=== PATIENT | male | born 1975 | race Hispanic/Latino ===

== ENCOUNTER → 2022-10-31 | Outpatient (CLI) | payer BC ==
[~2022-10-31] MED LIST: AEC81 PO; ATOR40TA69 PO; LISI10TA24 PO; METO-408 PO; TICA90TA PO
[2022-10-31 16:54] LABS: ALBUMIN 4.2 g/dL (3.5-5.0); BILIRUBIN,TOTAL 0.4 mg/dL (0.2-1.0); CREATININE 0.9 mg/dL (0.5-1.5); POTASSIUM 4.6 mmol/L (3.5-5.1); TOTAL PROTEIN, SERUM 6.9 g/dL (6.0-8.3)
== END | disposition home or self-care (01) ==
LOC: LAB 15:22
PROVIDERS: ATTEND Internal Medicine Cardiovascular Disease
DX: E78.5 Hyperlipidemia, unspecified (principal)
CPT/HCPCS: 36415; 80053; 80061

== ENCOUNTER 2023-05-21 10:46 | Emergency (ER) | payer BC ==
[~2023-05-21] VITALS: Ht 165.1 cm; Wt 79.4 kg
[2023-05-21] MEDS ORDERED: METH4TAB3 PO (11:32)
[2023-05-21] MEDS ORDERED: OMEP40CA21 PO (11:32)
[2023-05-21] MEDS ORDERED: IBUP-2077 PO (11:32)
[2023-05-21] MEDS ORDERED: CYCL-309 PO (11:32)
[2023-05-21 11:51] VITALS: BP 117/53; PULSE 66; RESP 16; O2SAT 98
[2023-05-21] MEDS: IBUPROFEN 800 MG TAB PO ONE (11:54)
== END 2023-05-21 13:04 | disposition home or self-care (01) ==
LOC: EDH 10:46
DX: S39.012A Strain of muscle, fascia and tendon of lower back, initial encounter (principal); F17.200 Nicotine dependence, unspecified, uncomplicated; Z79.82 Long term (current) use of aspirin; Z79.899 Other long term (current) drug therapy; Z98.890 Other specified postprocedural states; X50.0XXA Overexertion from strenuous movement or load, initial encounter; Y93.89 Activity, other specified; Y92.89 Other specified places as the place of occurrence of the external cause; Y99.8 Other external cause status
CPT/HCPCS: 72100

== ENCOUNTER 2024-04-09 14:14 | Emergency (ER) | payer BC ==
[~2024-04-09] VITALS: Ht 165.1 cm; Wt 79.4 kg
[~2024-04-09 14:14] MED LIST changes: +CYCL-309 PO; +IBUP-2077 PO; +METH4TAB3 PO; +OMEP40CA21 PO
--- NOTE | 2024-04-09 14:20 | ERN ---
General Chief Complaint: Nausea,Vomiting,Diarrhea Stated Complaint: ABDOMINAL PAIN,VOMITTING Time Seen by MD: 14:16 History of Present Illness Initial Comments 49-year-old male, history of cardiac disease with stent placement, presents for abdominal pain generalized with nausea and vomiting beginning this morning. Around 4:00 a.m. for generalized abdominal pain. It does not prefer a quadrant, has been constant throughout the day. He has vomited 3 times. No fevers sore throat cough congestion. No diarrhea or urinary symptoms. Denies any surgical history in the abdomen. He reports that he has had history of gallstones in the past, but this feels different. Allergies: Coded Allergies: No Known Allergies (Unverified Allergy, Unknown, 08/20/22) Home Meds Active Scripts Dicyclomine HCl (Bentyl) 20 Mg Tab, 20 MG PO Q6HPRN PRN for Abdominal cramps, #20 TAB Prov:ELSA CRAWFORD DIAZO TECHNICIAN 04/09/24 Ondansetron (Ondansetron Odt) 4 Mg Tab.rapdis, 4 MG PO Q6HPRN PRN for nausea, #16 TAB 0 Refills Prov:ELSA CRAWFORD DIAZO TECHNICIAN 04/09/24 Omeprazole (Omeprazole) 40 Mg Capsule.dr, 40 MG PO DAILY, #30 CAP Prov:ELSA CRAWFORD DIAZO TECHNICIAN 05/21/23 Methylprednisolone (Medrol) 4 Mg Tab.ds.pk, 4 MG PO AD, #1 UNIT Prov:ELSA CRAWFORD DIAZO TECHNICIAN 05/21/23 Cyclobenzaprine HCl (Cyclobenzaprine HCl) 10 Mg Tablet, 10 MG PO TID, #30 TAB Prov:ELSA CRAWFORD NP 05/21/23 Ibuprofen (Ibuprofen 800 mg Tab) 800 Mg Tab, 800 MG PO Q8H PRN for fever or pain, #30 TAB 0 Refills Prov:ELSA CRAWFORD NP 05/21/23 Lisinopril (Lisinopril) 10 Mg Tablet, 5 MG PO DAILY for 90 Days, #90 TAB 3 Refills Prov:TINA VIRGEN MD 08/21/22 Atorvastatin Calcium (LIPITOR) 40 Mg Tablet, 40 MG PO HS for 90 Days, #90 TAB 3 Refills Prov:TINA VIRGEN MD 08/21/22 Ticagrelor (Brilinta) 90 Mg Tablet, 90 MG PO BID for 90 Days, #180 TAB 3 Refills Prov:TINA VIRGEN MD 08/21/22 Aspirin (ASPIRIN 81 MG ECTAB) 81 Mg Ectab, 81 MG PO DAILY for 100 Days, #100 TAB.EC 3 Refills Prov:TINA VIRGEN MD 08/21/22 Reported Medications Metoprolol Succinate (Metoprolol Succinate) 25 Mg Tab.er.24h, 25 MG PO DAILY, TAB 09/13/22 Lisinopril (Lisinopril) 10 Mg Tablet, 10 MG PO DAILY, TAB 09/12/22 Past Medical History Past Medical History: Gallstones, Heart Disease, [place] Past Surgical History: Other Surgical History Other: CARDIAC STENTS Family History Family History: CAD Social History Social History: Smokers, Negative ROS Dictation CONSTITUTIONAL: No chills, no fever, no weakness, no diaphoresis, no malaise. HEAD/FACE: No signs of trauma. EENT: No eye pain, no blurred vision, no tearing, no double vision, no ear pain, no ear discharge, no nose pain, no nasal congestion, no throat pain, no throat swelling, no mouth pain. RESPIRATORY: No cough, no orthopnea, no SOB, no stridor, no wheezing. CARDIOVASCULAR: No chest pain, no edema, no palpitations, no syncope. GASTROINTESTINAL/ABDOMINAL: Abdominal pain and vomiting GENITOURINARY: No abnormal discharge, no dysuria, no frequent urination, no hematuria. No complaints of pain in the genitals. MUSCULOSKELETAL: No back pain, no gout, no joint pain, no joint swelling, no muscle pain, no muscle stiffness, no neck pain. INTEGUMENTARY: No change in color, no change in hair/nails, no dryness, no lesion, no lumps, no rash. NEUROLOGICAL/PSYCH: No anxiety, not depressed, no emotional problem, no headache, no numbness, no pre-existing deficit, no history of seizures, no tremors, no weakness. HEMATOLOGIC/LYMPHATIC: Not anemic, no history of blood clots, no apparent bleeding, no bruising, glands not swollen. All Systems Negative, Except as Noted. Physical Exam Physical Exam Dictation VITAL SIGNS: Reviewed. GENERAL APPEARANCE: Alert, oriented x3, no acute distress HEAD AND FACE: Non-traumatic. EYES: PERRL, pink conjunctivas, eyelid no trauma, anterior chamber clear. EARS: Pinnas intact and no signs of trauma or erythema. Ear canals clear and no discharge. TMs no erythema. NOSE: No discharge, no bleeding. OROPHARYNX: Mouth normal, teeth no caries, tongue pink. Pharynx clear, no erythema. Tonsils no exudates, no abscesses noted. Mucous membrane moist. NECK: Supple, non-tender, no thyromegaly, no masses, no JVD, no bruits. BREAST: Deferred. CHEST: No tenderness, no crepitus, no paradoxical movement, no retractions. LUNGS: Clear, well-ventilated, symmetric, no rales, no wheezing, no rhonchi, no stridor, good breath sounds bilaterally. HEART: Regular rate, regular rhythm, no murmur, no gallops. VASCULAR: No peripheral edema. ABDOMEN: Soft, positive bowel sounds, nondistended, no guarding, mild tenderness, no rebound tenderness RECTAL: Deferred. GENITAL: Deferred. NEUROLOGICAL: Normal speech, gross motor function intact, gross sensory function intact. MUSCULOSKELETAL: Neck nontender, full range of motion, back nontender, full range of motion. EXTREMITIES: Nontender, full range of motion. SKIN: Color pink, dry, no turgor, no rash, no lacerations, no abrasions, no contusions. LYMPHATICS: Deferred. Results Laboratory and Microbiology Lab and Micro Result Laboratory Tests Test 04/09/24 15:20 White Blood Count 14.7 K/uL (4.8-10.8) H Red Blood Count 5.48 MIL/uL (4.50-6.20) Hemoglobin 16.7 g/dL (14.0-18.0) Hematocrit 48.7 % (42-54) Mean Corpuscular Volume 88.9 fL (79-99) Mean Corpuscular Hemoglobin 30.5 pg (27.0-33.0) Mean Corpuscular Hemoglobin Concent 34.3 g/dL (32.0-36.0) Red Cell Distribution Width 12.4 % (11.0-15.5) Platelet Count 266 K/uL (130-400) Mean Platelet Volume 10.0 fL (7.5-10.5) Immature Granulocyte % (Auto) 0.4 % (0-1) Neutrophils (%) (Auto) 89.5 % (40.0-77.0) H Lymphocytes (%) (Auto) 7.1 % (21.0-51.0) L Monocytes (%) (Auto) 2.5 % (3.0-13.0) L Eosinophils (%) (Auto) 0.2 % (0.0-8.0) Basophils (%) (Auto) 0.3 % (0.0-5.0) Neutrophils # (Auto) 13.2 K/uL (1.8-7.7) H Lymphocytes # (Auto) 1.0 K/uL (1.0-4.8) Monocytes # (Auto) 0.4 K/uL (0.1-1.0) Eosinophils # (Auto) 0.03 K/uL (0.00-0.70) Basophils # (Auto) 0.04 K/uL (0.00-0.20) Absolute Immature Granulocyte (auto 0.06 K/uL (0-1) Nucleated Red Blood Cells 0.0 % (0.0-0.19) White Cell Morphology Comment See comments Sodium Level 135 mmol/L (136-145) L Potassium Level 4.4 mmol/L (3.5-5.1) Chloride Level 101 mmol/L (101-111) Carbon Dioxide Level 25 mmol/L (21-32) Blood Urea Nitrogen 12 mg/dL (7-18) Creatinine 0.9 mg/dL (0.5-1.3) Glomerular Filtration Rate Calc 105 mL/min (>90) Random Glucose 131 mg/dL (70-105) H Lactic Acid Level 1.8 mmol/L (0.8-2.5) Total Calcium 10.3 mg/dL (8.5-10.1) H Total Bilirubin 0.5 mg/dL (0.2-1.0) Direct Bilirubin 0.2 mg/dL (0.0-0.3) Aspartate Amino Transf (AST/SGOT) 25 U/L (10-37) Alanine Aminotransferase (ALT/SGPT) 42 U/L (12-78) Alkaline Phosphatase 60 U/L (50-136) Troponin I High Sensitivity 31 ng/L (4-75) Total Protein 8.0 g/dL (6.0-8.3) Albumin 4.2 g/dL (3.5-5.0) Lipase 25 U/L (16-77) Labs Reviewed?: Yes EKG/XRAY/US/CT/MRI EKG Comment [facility] Test Date: 2024-04-09 Test Time: 15:36:51 Pat Name: NAI BAKER Department: [facility] Room: Gender: Male Lofter: [id number] : 1975 Requested By: TYLER REYES Order Number: [id number] Reading MD: Measurements Intervals [place] Rate: 63 P: -3 OK: 149 QRS: 53 QRSD: 85 T: 14 QT: 388 QTc: 396 Interpretive Statements HEART SCORE IS THREE Sinus rhythm Please click the below link to view image of tracing. X-RAY Comment CHEST 1VW REASON: epigastric pain COMPARISON: 09/12/2022 FINDINGS: Single view of the chest was obtained. Lungs are clear. Heart size is normal. There is no pulmonary vascular congestion. Mediastinum and bony thorax appear unremarkable. IMPRESSION: 1. Normal single view chest x-ray. Ultrasound Comment BDOMINAL RUQ\E\LTD HISTORY: Adominal Pain COMPARISON: 10/12/2012 FINDINGS: There is normal sonographic appearance of the liver. There are no focal liver masses. The liver is not enlarged.There are multiple small stones in an otherwise normal-appearing gallbladder. There is no wall thickening or edema. Common duct is normal. Right kidney is normal with no evidence of mass, hydronephrosis or stone.The pancreas is obscured by overlying bowel gas. IMPRESSION: 1. 1. Cholelithiasis without evidence of acute cholecystitis. 2. Otherwise unremarkable exam although the pancreas was not visualized. CT Scan Comment Findings: No evidence of nephro or ureterolithiasis is found. No hydronephrosis or ureteral dilatation is seen. The lung bases are clear. The stomach is unremarkable. It shows no wall thickening. No gross ulceration is seen. It is not overly distended. There are no surrounding inflammatory changes. No wall lesions are identified to suggest cancer. The spleen is unremarkable. It is not enlarged. The pancreas shows normal anatomy. It is not fatty replaced. It shows no lesions. The pancreatic duct is not dilated. There is evidence of cholelithiasis. No evidence of acute or chronic inflammation is seen. The adrenal glands are unremarkable. There is no enlargement. No lesions are noted. The liver is unremarkable. It shows no focal masses. The appendix is unremarkable. It shows no evidence of inflammation. No appendicolith is seen. The small bowel is unremarkable. There is no evidence of dilatation to suggest obstruction. No evidence of adynamic ileus is seen. There is no small bowel wall thickening to suggest enteritis. The colon is unremarkable. The urinary bladder is unremarkable. There is no wall thickening to suggest tumor or inflammation. There are no intraluminal calculi. There are no diverticula. There is no evidence of chronic bladder outlet obstruction. There is no evidence of urinary bladder distention to suggest urinary retention. The other pelvic structures are unremarkable. The bony and vascular structures are unremarkable for the patient's age. IMPRESSION: NEGATIVE CT SCAN OF THE ABDOMEN AND PELVIS WITH ORAL AND IV CONTRAST. MDM MDM: Differential diagnosis: Pancreatitis/cholelithiasis/choledoc holithiasis/cholelithiasis/biliary colic/electrolyte imbalance/dehydration/food poisoning Rationale: Tests considered and ordered secondary to shared decision making include: Labs/radiology Previous outside records reviewed: Old ER visits. Risk of complication and/or morbidity or mortality of patient management: None Medications-Per medication reconciliation Need for hospitalization: Patient does not meet criteria for hospitalization. No patient we would wishes to be discharged home on Bentyl and Zofran and a clear liquid diet and we will see his doctor tomorrow Need for emergency major/minor surgery: No There are no social concerns with this patient. Prescription drug management Bentyl/Zofran Prescriptions will include symptomatic care Patient's prior external medical records from other ER visits were reviewed by me as indicated. Prior testing and results from previous visits were reviewed. Prior tests were taken into account with medical decision making and resource utilization, independent historian/historians were used to obtain complete medical history. I independently interpreted the test that were performed, results were reviewed by me and considered findings on radiology if ordered. Medical management and examination interpretation discussions were had by me with other qualified healthcare professionals as indicated for the patient's care. ED Course Orders Procedure Category Date Status Time Cbc With Differential LAB 04/09/24 Complete 14:20 Troponin I High LAB 04/09/24 Complete Sensitivity 14:20 Ct Abdomen/Pelvis CT 04/09/24 Resulted W/Contrast 14:20 Us Abdominal Ruq\Ltd US 04/09/24 Resulted 14:20 12 Lead Ekg Tracing- EKG 04/09/24 Resulted Technical 14:20 Lactated Ringers PHA 04/09/24 Complete 1000ml (Lactated 14:30 Morphine 2mg Syg PHA 04/09/24 Complete (Morphine 2mg Syg) 14:30 Ondansetron 4mg Inj PHA 04/09/24 Complete (Zofran 4mg Inj) 14:30 Chest 1vw RAD 04/09/24 Resulted 14:20 Lipase LAB 04/09/24 Complete 14:20 Basic Metabolic Panel LAB 04/09/24 Complete 14:20 Lactic Acid LAB 04/09/24 Complete 14:20 Hepatic Function Panel LAB 04/09/24 Complete 14:20 Ondansetron 4mg Inj PHA 04/09/24 Complete (Zofran 4mg Inj) 18:47 Morphine 2mg Syg PHA 04/09/24 Complete (Morphine 2mg Syg) 18:47 Iohexol (Omnipaque) PHA 04/09/24 Complete 18:52 Ketorolac PHA 04/09/24 Complete Tromethamine 30mg/Ml 20:00 Dicyclomine Hcl PHA 04/09/24 Complete (Bentyl 20mg Inj) 20:30 Current Medications Medications (Trade) Dose Ordered Sig/Rufino Route PRN Reason Start Time Stop Time Status Last Admin Dose Admin Dicyclomine HCl (Bentyl 20mg Inj) 20 mg ONCE ONCE IM 04/09/24 20:30 04/09/24 20:31 DC 04/09/24 20:29 Iohexol (Omnipaque) 75 ml STK-MED ONCE IV 04/09/24 18:52 04/09/24 18:52 DC Ketorolac Tromethamine (toRADol) 30 mg ONCE ONCE IVP 04/09/24 20:00 04/09/24 20:01 DC 04/09/24 20:14 Lactated Ringer's 1,000 ml @ 0 mls/hr ONCE ONCE IV 04/09/24 14:30 04/09/24 14:31 DC 04/09/24 18:50 Morphine Sulfate (morPHINE 2MG SYG) 2 mg ONCE ONCE IVP 04/09/24 14:30 04/09/24 14:31 DC 04/09/24 18:50 Morphine Sulfate (morPHINE 2MG SYG) 2 mg STK-MED ONCE .ROUTE 04/09/24 18:47 04/09/24 18:48 DC Ondansetron HCl (zoFRAN 4MG INJ) 4 mg ONCE ONCE IVP 04/09/24 14:30 04/09/24 14:31 DC 04/09/24 18:50 Ondansetron HCl (zoFRAN 4MG INJ) 4 mg STK-MED ONCE .ROUTE 04/09/24 18:47 04/09/24 18:47 DC Vital Signs Date Time Temp Pulse Resp B/P (MAP) Pulse Ox O2 Delivery O2 Flow Rate FiO2 04/09/24 21:16 98.1 68 17 159/82 98 Room Air* 0 21 04/09/24 20:30 98.2 83 18 160/82 97 Room Air* 0 21 04/09/24 19:30 98.2 85 18 167/87 98 Room Air* 0 04/09/24 18:30 98.1 85 18 165/80 100 Room Air* 0 04/09/24 14:17 98.1 76 16 160/79 98 Room Air DX & DISP Disposition: Discharge Departure Impression: Primary Impression: Cholelithiasis Additional Impressions: Biliary colic, Food poisoning, Nausea & vomiting, Abdominal cramps Condition: Stable Scripts Dicyclomine HCl (Bentyl) 20 Mg Tab 20 MG PO Q6HPRN PRN for Abdominal cramps, #20 TAB Prov: ELSA CRAWFORD DIAZO TECHNICIAN 04/09/24 Ondansetron (Ondansetron Odt) 4 Mg Tab.rapdis 4 MG PO Q6HPRN PRN for nausea, #16 TAB 0 Refills Prov: ELSA CRAWFORD DIAZO TECHNICIAN 04/09/24 Additional Instructions: Follow-up with primary care provider in 1 to 2 days. Take medications as directed here in the emergency room. Okay to continue home medications unless otherwise discussed during your visit in the emergency room today. Return to your nearest emergency room if symptoms worsen or if there is no improvement. Call 911 if you need immediate assistance. Take Tylenol or Motrin [id number] as needed and if no contraindications are present. Increase oral hydration. A wound culture or urine culture was ordered here in the emergency room department please follow-up with primary care provider and advise them to get repeat ports from our facility. If you had any Yousif wrap/splints that were applied here, please do not remove them until you see your primary care or specialty. Suggest clear liquid diet for the next18 hours, then advance diet slowly to your regular diet. Surgeon for an appointment in the next several days to discuss your bought gallbladder stones Referrals: TINA VIRGEN MD (PCP) MIGUEL BLAND MD Time of Disposition: 20:48 I have reviewed the case, and I agree with, Diagnosis and Plan TYLER REYES DO Apr 09, 2024 14:20 ELSA CRAWFORD NP Apr 09, 2024 19:42
--- NOTE | 2024-04-09 14:58 | HMCIMG ---
CHEST 1VW REASON: epigastric pain COMPARISON: 09/12/2022 FINDINGS: Single view of the chest was obtained. Lungs are clear. Heart size is normal. There is no pulmonary vascular congestion. Mediastinum and bony thorax appear unremarkable. IMPRESSION: 1. Normal single view chest x-ray.
--- NOTE | 2024-04-09 14:59 | HMCIMG ---
US ABDOMINAL RUQ\E\LTD HISTORY: Adominal Pain COMPARISON: 10/12/2012 FINDINGS: There is normal sonographic appearance of the liver. There are no focal liver masses. The liver is not enlarged.There are multiple small stones in an otherwise normal-appearing gallbladder. There is no wall thickening or edema. Common duct is normal. Right kidney is normal with no evidence of mass, hydronephrosis or stone.The pancreas is obscured by overlying bowel gas. IMPRESSION: 1. 1. Cholelithiasis without evidence of acute cholecystitis. 2. Otherwise unremarkable exam although the pancreas was not visualized.
--- NOTE | 2024-04-09 15:39 | EKG ---
[facility] Test Date: 2024-04-09 Test Time: 15:36:51 Pat Name: NAI BAKER Department: [facility] Room: Gender: M Housing Inspector: 08 : 1975 Requested By: TYLER REYES Order Number: [id number] Reading MD: Chang Austin Measurements Intervals [place] Rate: 63 P: -3 [place]: 149 QRS: 53 QRSD: 85 T: 14 QT: 388 QTc: 396 Interpretive Statements Sinus rhythm Compared to ECG 09/12/2022 21:02:47 Myocardial infarct finding no longer present Electronically Signed On 04-09-2024 19:50:30 ER REGISTRAR by Chang Austin Please click the below link to view image of tracing.
[2024-04-09 15:49] LABS: BASOPHILS # (AUTO) 0.04 K/uL (0.00-0.20); BASOPHILS % (AUTO) 0.3 % (0.0-5.0); EOSINOPHILS # (AUTO) 0.03 K/uL (0.00-0.70); EOSINOPHILS % (AUTO) 0.2 % (0.0-8.0); HEMATOCRIT 48.7 % (42-54); IMMATURE GRANULOCYTE ABSOLUTE 0.06 K/uL (0-1); LYMPHOCYTES % (AUTO) 7.1 % (21.0-51.0); MEAN CORPUSCULAR HEMOGLOBIN 30.5 pg (27.0-33.0); MEAN CORPUSCULAR HGB CONC 34.3 g/dL (32.0-36.0); MEAN CORPUSCULAR VOLUME 88.9 fL (79-99); MONOCYTES # (AUTO) 0.4 K/uL (0.1-1.0); MONOCYTES % (AUTO) 2.5 % (3.0-13.0); NEUTROPHILS # (AUTO) 13.2 K/uL (1.8-7.7); NEUTROPHILS % (AUTO) 89.5 % (40.0-77.0); PLATELET COUNT (AUTO) 266 K/uL (130-400); RED BLOOD CELL COUNT(AUTO) 5.48 MIL/uL (4.50-6.20); RED CELL DISTRIBUTION WIDTH 12.4 % (11.0-15.5); WHITE BLOOD COUNT (AUTO) 14.7 K/uL (4.8-10.8)
[2024-04-09 16:36] LABS: CREATININE 0.9 mg/dL (0.5-1.3); POTASSIUM 4.4 mmol/L (3.5-5.1)
[2024-04-09 16:56] LABS: ALBUMIN 4.2 g/dL (3.5-5.0); BILIRUBIN,DIRECT 0.2 mg/dL (0.0-0.3); BILIRUBIN,TOTAL 0.5 mg/dL (0.2-1.0)
--- NOTE | 2024-04-09 18:29 | NUR ---
ASSUMED CARE FOR PT AT THIS TIME
[2024-04-09] MEDS: morPHINE 2 MG SYG IVP ONE (18:50)
[2024-04-09] MEDS: LACTATED RINGERS 1000ML 1,000 ML IV ONE (18:50)
[2024-04-09] MEDS: ondanSETRON 4MG INJ IVP ONE (18:50)
[2024-04-09] MEDS: ondanSETRON 4MG INJ ONE (18:51)
[2024-04-09] MEDS: morPHINE 2 MG SYG ONE (18:51)
[2024-04-09] MEDS ORDERED: IOHEXOL-350 75 ML VIAL IV ONE (18:52)
--- NOTE | 2024-04-09 19:31 | HMCIMG ---
Exam Type: CT ABDOMEN/PELVIS W/CONTRAST Clinical Information: Abdominal Pain Comparison: None Contrast: 100 cc's Isovue 370 IV, no complications or adverse reactions CT Dose Index (CTDI): 31.60 mGy Dose Length Product (DLP): 1740.80 total mGy-cm Findings: No evidence of nephro or ureterolithiasis is found. No hydronephrosis or ureteral dilatation is seen. The lung bases are clear. The stomach is unremarkable. It shows no wall thickening. No gross ulceration is seen. It is not overly distended. There are no surrounding inflammatory changes. No wall lesions are identified to suggest cancer. The spleen is unremarkable. It is not enlarged. The pancreas shows normal anatomy. It is not fatty replaced. It shows no lesions. The pancreatic duct is not dilated. There is evidence of cholelithiasis. No evidence of acute or chronic inflammation is seen. The adrenal glands are unremarkable. There is no enlargement. No lesions are noted. The liver is unremarkable. It shows no focal masses. The appendix is unremarkable. It shows no evidence of inflammation. No appendicolith is seen. The small bowel is unremarkable. There is no evidence of dilatation to suggest obstruction. No evidence of adynamic ileus is seen. There is no small bowel wall thickening to suggest enteritis. The colon is unremarkable. The urinary bladder is unremarkable. There is no wall thickening to suggest tumor or inflammation. There are no intraluminal calculi. There are no diverticula. There is no evidence of chronic bladder outlet obstruction. There is no evidence of urinary bladder distention to suggest urinary retention. The other pelvic structures are unremarkable. The bony and vascular structures are unremarkable for the patient's age. IMPRESSION: NEGATIVE CT SCAN OF THE ABDOMEN AND PELVIS WITH ORAL AND IV CONTRAST. This study was performed using dose reduction techniques to include automated exposure control and/or adjustment of the mA and/or kV according to patient size.
[2024-04-09] MEDS: ketOROlac 30MG VIAL (30MG/ML) IVP ONE (20:14)
[2024-04-09] MEDS: DICYCLOMINE 20MG (10MG/ML) AMP IM ONE (20:29)
[2024-04-09] MEDS ORDERED: ONDA-243 PO (20:49)
[2024-04-09] MEDS ORDERED: DICY20TA2 PO (20:49)
[2024-04-09 21:16] VITALS: BP 159/82; PULSE 68; RESP 17; TEMP 98.1; O2SAT 98
== END 2024-04-09 21:17 | disposition home or self-care (01) ==
LOC: EDH 14:14
DX: K80.20 Calculus of gallbladder without cholecystitis without obstruction (principal); K80.50 Calculus of bile duct without cholangitis or cholecystitis without obstruction; A05.9 Bacterial foodborne intoxication, unspecified; R10.84 Generalized abdominal pain; R11.2 Nausea with vomiting, unspecified; I25.2 Old myocardial infarction; F17.200 Nicotine dependence, unspecified, uncomplicated; Z79.02 Long term (current) use of antithrombotics/antiplatelets; Z79.899 Other long term (current) drug therapy; Z79.82 Long term (current) use of aspirin; Z95.5 Presence of coronary angioplasty implant and graft
CPT/HCPCS: 99285; 74177; 96374; 76705; 96375; 71045; 96361; 80076; 84484; 80048; 83690; 85025; 83605; 36415; 93005; 96372; J1885; J2270; J2405; J0500; Q9967